=== PATIENT | male | born 1965 | race Caucasian/White ===

== ENCOUNTER 2019-02-24 02:33 | Emergency (ER) | payer BC ==
[~2019-02-24] VITALS: Ht 170.2 cm; Wt 72.7 kg
[2019-02-24 03:50] VITALS: BP 131/86
== END 2019-02-24 03:51 | disposition home or self-care (01) | DRG 151 ==
LOC: ED 02:33
DX: R04.0 Epistaxis (principal)

== ENCOUNTER 2020-03-21 14:53 | Emergency (ER) | payer OTHER, BC ==
[~2020-03-21] VITALS: Ht 170.2 cm; Wt 75.0 kg
[2020-03-21 16:40] VITALS: BP 143/92
== END 2020-03-21 16:40 | disposition home or self-care (01) | DRG 556 ==
LOC: ED 14:53
DX: M79.632 Pain in left forearm (principal); M25.522 Pain in left elbow; X50.0XXA Overexertion from strenuous movement or load, initial encounter; Y93.89 Activity, other specified; Y92.89 Other specified places as the place of occurrence of the external cause; Y99.0 Civilian activity done for income or pay

== ENCOUNTER 2020-11-23 11:38 | Emergency (ER) | payer SELFPAY | END 2020-11-23 14:23 | disposition left against medical advice (07) | DRG 951 | LOC: ED 11:38 | DX: Z91.19 Patient's noncompliance with other medical treatment and regimen (principal) ==

== ENCOUNTER 2021-07-18 18:42 | Emergency (ER) | payer OTHER ==
[~2021-07-18] VITALS: Ht 170.2 cm; Wt 75.0 kg
[2021-07-18 20:13] VITALS: BP 153/94
== END 2021-07-18 20:20 | disposition home or self-care (01) | DRG 552 ==
LOC: ED 18:42
DX: S16.1XXA Strain of muscle, fascia and tendon at neck level, initial encounter (principal); S39.012A Strain of muscle, fascia and tendon of lower back, initial encounter; S63.615A Unspecified sprain of left ring finger, initial encounter; S70.02XA Contusion of left hip, initial encounter; S50.02XA Contusion of left elbow, initial encounter; S80.12XA Contusion of left lower leg, initial encounter; S90.32XA Contusion of left foot, initial encounter; V49.40XA Driver injured in collision with unspecified motor vehicles in traffic accident, initial encounter

== ENCOUNTER 2022-03-06 23:43 | Emergency (ER) | payer OTHER ==
[~2022-03-06] VITALS: Ht 170.2 cm; Wt 77.0 kg
[2022-03-07] MEDS ORDERED: COLCHICINE0.6 M2 PO (01:56)
[2022-03-07] MEDS ORDERED: PREDNISONE20 MG PO (01:56)
[2022-03-07] MEDS ORDERED: EC-NAPROXEN500 MG PO (01:56)
[2022-03-07 02:01] VITALS: BP 137/72
== END 2022-03-07 02:01 | disposition home or self-care (01) | DRG 556 ==
LOC: ED 23:43
DX: M79.674 Pain in right toe(s) (principal); M10.9 Gout, unspecified; I10 Essential (primary) hypertension